=== PATIENT | male | born 1970 | race Caucasian/White ===

== ENCOUNTER 2018-09-27 22:38 | Inpatient (IN) | payer OTHER ==
[~2018-09-27] VITALS: Ht 175.3 cm; Wt 108.6 kg
[2018-09-27 23:21] LABS: COLLECTION METHOD CLEAN CATCH
[2018-09-27 23:21] LABS: BASO % 0.3 % (0.0-2.0); EOS % 0.1 % (0-4.0); GRAN # 10.8 (1.4-6.5); GRAN % 87.5 % (42.2-75.2); HEMATOCRIT 44.7 % (42.0-52.0); HEMOGLOBIN 15.8 g/dl (13.5-18.0); LYMPH % 7.8 % (20.0-51.0); MEAN CELL VOLUME 91 fl (80.0-100.0); MEAN CORPUSCULAR HEMOGLOBIN 32 pg (27.0-31.0); MEAN CORPUSCULAR HGB CONC 35 g/dl (33.0-37.0); MEAN PLATELET VOLUME 10.5 fl (7.4-10.4); MONO # 0.5 (0.1-0.6); MONO % 4.1 % (1.7-9.3); PLATELET COUNT 180 K/mm3 (130-400); RED BLOOD COUNT 4.91 M/mm3 (4.20-5.60); REDCELL DISTRIBUTION WIDTH-CV 13.2 % (11.5-14.5)
[2018-09-27 23:26] LABS: MUCOUS Present /lpf; PH 6 (5-8); SQUAMOUS EPITHELIAL 0-2 /hpf; URINE APPEARANCE Hazy; URINE BACTERIA None Seen /hpf; URINE BILIRUBIN Negative (NEGATIVE); URINE BLOOD Negative (NEGATIVE); URINE COLOR Yellow; URINE GLUCOSE Negative (NEGATIVE); URINE KETONE Negative (NEGATIVE); URINE LEUKOCYTE ESTERASE Negative (NEGATIVE); URINE NITRATE Negative (NEGATIVE); URINE PROTEIN(semi-quant) Negative (NEGATIVE); URINE RBC 0-2 /hpf; URINE UROBILINOGEN >=4.0 mg/dL (NEGATIVE)
[2018-09-27 23:35] LABS: ALBUMIN 4.1 gm/dL (3.5-5.0); BILIRUBIN,TOTAL 0.8 mg/dL (0.0-1.0); C-REACTIVE PROTEIN 0.7 mg/dL (0.0-0.9); CALCIUM 9.3 mg/dL (8.4-10.2); CREATININE, serum 1.03 (0.66-1.25); POTASSIUM 3.6 mmol/L (3.4-5.0); TOTAL PROTEIN 7.7 gm/dL (6.4-8.2)
--- NOTE | 2018-09-28 02:52 | NUR ---
Pt. arrived to the floor from ER. Pt. is A&XO3, assessment complete. IV to rt. ac patent, IV fluids started. Pt. reports pain to the abd. at a 1-2 at this time. Pt. denies need for pain meds. Call light within reach.
[2018-09-28 02:57] VITALS: BP 114/74; PULSE 102; TEMP 99.3
[2018-09-28 08:21] VITALS: BP 113/70; PULSE 102; TEMP 99.7
--- NOTE | 2018-09-28 08:52 | NUR ---
Patient resting in bed. rounded. Patient Npo per orders. Denies nausea. Denies passing flatus. Report a headache & dry eyes & some abdominal cramping. Patient denies the need for medication at this time. Abdomen soft, hernia present. Will kamila.
[2018-09-28 09:15] LABS: HEMATOCRIT 40.3 % (42.0-52.0); HEMOGLOBIN 14.2 g/dl (13.5-18.0); MEAN CELL VOLUME 91 fl (80.0-100.0); MEAN CORPUSCULAR HEMOGLOBIN 32 pg (27.0-31.0); MEAN CORPUSCULAR HGB CONC 35 g/dl (33.0-37.0); MEAN PLATELET VOLUME 10.7 fl (7.4-10.4); PLATELET COUNT 162 K/mm3 (130-400); RED BLOOD COUNT 4.45 M/mm3 (4.20-5.60)
[2018-09-28 09:22] LABS: ALBUMIN 3.4 gm/dL (3.5-5.0); BILIRUBIN,TOTAL 1.7 mg/dL (0.0-1.0); CALCIUM 8.9 mg/dL (8.4-10.2); CREATININE, serum 0.98 (0.66-1.25); TOTAL PROTEIN 6.5 gm/dL (6.4-8.2)
[2018-09-28 09:37] LABS: BAND 5 % (0-10); LYMPHOCYTE 3 % (20.0-51.0); NEUTROPHILS 90 % (42.0-75.2); PLATELET ESTIMATE NORMAL (NORMAL)
--- NOTE | 2018-09-28 09:38 | NUR ---
KAROLINE met with the patient to discuss discharge plan. The patient lives in [place] with his son, Luiz. He states that his daughter, Ines, is watching his son while he is here. He reports independence with ADls and does not have any DME. The patient receives primary care at [facility] and he receives his medications there. The patient does not have advanced directives and he was not interested in completing them. He states that his person to contact is his daughter, Ines. The patient plans to return home upon discharge. No additional needs at this time.
--- NOTE | 2018-09-28 10:46 | NUR ---
Patient up and ambulated the halls, Went to the bathroom. Denies bm or flatus, but did report belching. IS ordered & scds ble refused at this time
--- NOTE | 2018-09-28 12:09 | NUR ---
First visit from the sliver former. No needs right now.
[2018-09-28 12:37] VITALS: BP 119/74; PULSE 89; TEMP 98.9
[2018-09-28 15:24] VITALS: BP 117/74; PULSE 79; TEMP 98.9
--- NOTE | 2018-09-28 17:31 | NUR ---
Patient progressed to clear liquids, he had a glass of apple juice & then had episode of emesis. Patient going to just sip water slowly at this time. He has not yet had a BM. Minimal flatus, but does reprt belching. IV continue. He is voiding small amount of tr urine output. Will monitor.
--- NOTE | 2018-09-28 20:40 | NUR ---
Patient report received from Zoie Langston at shift change. Upon assessment at this time patient is resting in bed. Reported feeling like he needed to belch and vomitted instead. 200 ml emesis. Patient also reports having intermittant cramping pain to his abd, declines anything for pain at this time. IV to Right AC with fluids going at 100 ml/hr. No other needs reported/observed.
[2018-09-29] VITALS (7 sets, daily range): BP systolic 114–122; BP diastolic 72–79; PULSE 81–95; TEMP 98.1–98.6
--- NOTE | 2018-09-29 08:05 | NUR ---
Patient sitting up at edge of bed, He reports flatus. No Bm. Denies complaints of nausea at this time, but did have nausea over night. Denies the need for pain or nausea medication at this time. He is going to try & be mobile this am & sip clears, will monitor
--- NOTE | 2018-09-29 11:10 | NUR ---
rounded. Orders obtained, Eleazar in iced tea. Patient going to shower this afternoon.
--- NOTE | 2018-09-29 18:57 | NUR ---
Patient has continued to very sparingly sip on clears, he has denied nausea. He has required no pain medication today, but does report abdominal cramping at times. Ivf per orders. Continues to void concentrated urine. Scds ble. Report to Gracia RN
--- NOTE | 2018-09-29 21:00 | NUR ---
Patient very quiet, denies need for pain meds and isn't nauseated at this time. He reports pain comes in waves but doesn't stay. Abdomen with bulging abdominal hernia that is warm and slightly reddened in appearance. Bowel sounds hypoactive. Not taking much oral fluids, no emesis.
[2018-09-30] VITALS (10 sets, daily range): BP systolic 108–136; BP diastolic 70–83; PULSE 80–95; TEMP 98.2–98.8
--- NOTE | 2018-09-30 00:15 | NUR ---
Patient reports he has nausea, Zofran 4mg IV at this time.
[2018-09-30 06:49] LABS: HEMATOCRIT 40.1 % (42.0-52.0); HEMOGLOBIN 14.2 g/dl (13.5-18.0); MEAN CELL VOLUME 91 fl (80.0-100.0); MEAN CORPUSCULAR HEMOGLOBIN 32 pg (27.0-31.0); MEAN CORPUSCULAR HGB CONC 35 g/dl (33.0-37.0); MEAN PLATELET VOLUME 10.7 fl (7.4-10.4); PLATELET COUNT 176 K/mm3 (130-400); RED BLOOD COUNT 4.43 M/mm3 (4.20-5.60)
[2018-09-30 07:07] LABS: ALBUMIN 3.4 gm/dL (3.5-5.0); CALCIUM 8.4 mg/dL (8.4-10.2); CREATININE, serum 0.9 (0.66-1.25); PHOSPHOROUS 2.6 mg/dL (2.5-4.5); POTASSIUM 3.7 mmol/L (3.4-5.0)
[2018-09-30 07:19] LABS: BAND 3 % (0-10); EOSINOPHIL 2 % (0-4); LYMPHOCYTE 3 % (20.0-51.0); NEUTROPHILS 89 % (42.0-75.2)
--- NOTE | 2018-09-30 09:32 | NUR ---
Assessment completed, alert/oriented, vital signs stable, denies pain, still having some nausea and night nurse report roughly 500 cc emesis this morning, BS hypoactive, abdomen tender to palpation, heart RRR, lungs CTA, I have discussed plan of care with and updated on patients condition, had order to repeart Abd CT and place NG tuble possible OR today or tommorow if he does not start to improve
--- NOTE | 2018-09-30 16:50 | NUR ---
and radiology have reiveiwed Abd CT and recommending patient go to OR for Diagnostic Laprascopy and possible bowel resect, patient understands and agrees with plan of care, informed consent obtained and he is on his way to the OR at this time
--- NOTE | 2018-09-30 20:10 | NUR ---
RETURNED FROM SURGERY PER BED. IS AWAKE AND ALERT. HAS OXYGEN ON AT 3L/NC. HAS NGT TO RIGHT NARE, PLACED TO LIS WITH BEDOLLA DRAINAGE. HAS LARGE MIDLINE INCISION WITH SHADOWING ON DRESSING. HAS 2 LAP SITES COVERED WITH GAUZE, D/I. HAS EPIDURAL CATHETER INTACT TO BACK. HAS IVF TO RIGHT AC WITH IVF INFUSING WITHOUT REDNESS OR SWELLING. LINCOLN TO BSD WITH YELLOW URINE. LINCOLN CARE PROVIDED. DENIES PAIN AT THIS TIME.
[2018-10-01] VITALS (8 sets, daily range): BP systolic 105–117; BP diastolic 65–75; PULSE 71–94; TEMP 98–98.9
--- NOTE | 2018-10-01 00:10 | NUR ---
Patient reports still being comfortable with the Epidural. Shadowing to midline drsg has not increased.
--- NOTE | 2018-10-01 06:00 | NUR ---
Has 450cc of deleon drainage from NGT. Reports being comfortable with the Epidural infusing. IVF continue to right AC. Offers no concerns at this time.
[2018-10-01 07:58] LABS: BAND 1 % (0-10); LYMPHOCYTE 6 % (20.0-51.0); NEUTROPHILS 89 % (42.0-75.2); PLATELET ESTIMATE NORMAL (NORMAL)
--- NOTE | 2018-10-01 08:24 | NUR ---
Patient up to the chair this am. One assist & did well. Epidural @ 6 managing pain well. Okay with anesthesia for Lovenox injection this am. Patient Npo, denies nausea, Ng tube to LIS. Swann to DD. Abdomen rounded, bowels quiet, he denies flatus, but reports belching. Abdominal drg CBI. Will monitor
[2018-10-01 08:45] LABS: HEMATOCRIT 37.1 % (42.0-52.0); HEMOGLOBIN 13.4 g/dl (13.5-18.0); MEAN CELL VOLUME 89 fl (80.0-100.0); MEAN CORPUSCULAR HEMOGLOBIN 32 pg (27.0-31.0); MEAN CORPUSCULAR HGB CONC 36 g/dl (33.0-37.0); MEAN PLATELET VOLUME 10.3 fl (7.4-10.4); PLATELET COUNT 210 K/mm3 (130-400); RED BLOOD COUNT 4.17 M/mm3 (4.20-5.60); REDCELL DISTRIBUTION WIDTH-CV 12.9 % (11.5-14.5)
[2018-10-01 10:29] LABS: ALBUMIN 2.7 gm/dL (3.5-5.0); CREATININE, serum 0.88 (0.66-1.25); PHOSPHOROUS 4.2 mg/dL (2.5-4.5); POTASSIUM 3.9 mmol/L (3.4-5.0)
--- NOTE | 2018-10-01 11:46 | NUR ---
Initial visit; Patient thanked [employer] Supervisor for looking in on him and offering God's blessings. Patient has good family support.
--- NOTE | 2018-10-01 18:21 | NUR ---
Patient continues to do well. He has ambulated the halls today. He is siting up in the chair. Epidural manages pain. He remains NPO, NG to LIS. Ranjiteis nausea. Abdominal incisions drg changed per orders-lap site bandaids intact & midline gauze & tape to fouzia. Abdominal binder in place for patient comfort. Ivf to Rac per orders. Scds. Is used. Will report off to night nurse
--- NOTE | 2018-10-01 20:30 | NUR ---
Patient report received from ANA Whyte at shift change. Upon assessment at this time patient is sitting up in the chair. Denies pain or N/V. NG to LIS. Swann to dependant drainage, concentrated urine noted. IV fluids running at 100 ml/hr. Epidural in place, infusing at 6 ml/hr. Patient reports not having to push the button for additional medication. Patient currently has an abd binder in place. Vitals stable. Aide assisted patient for a walk in the capps, tolerated well, back to bed. No other needs reported/observed.
[2018-10-02 04:15] VITALS: BP 107/73; PULSE 88; TEMP 98.4
--- NOTE | 2018-10-02 05:27 | NUR ---
Patient report given to ANA Mayen. Patient resting comfortably at this time.
--- NOTE | 2018-10-02 08:00 | NUR ---
PATIENT IS RESTING IN BED THIS MORNING. PATIENT IS A&OX4. IRREGULAR HEART RHYTHM WITH REGULAR RATE NOTED, OTHERWISE VSS. ABDOMEN IS DISTENDED, BUT SOFT TO PALPATION. NG TUBE TO LIS WITH 200 MLS OF GREEN EMESIS PRESENT IN NG WALL CANISTER. MIDLINE ABDOMINAL INCISION DRESSED WITH GAUZE AND HYPAFIX AND IS CD&I. ABDOMINAL LAP SITES X2 DRESSED WITH BANDAIDS AND ARE CD&I. BACK EPIDURAL SITE DRESSED WITH TEGADERM AND ORANGE TAPE, SCANT AMOUNT OF OLD BLOODY DRAINAGE PRESENT, OTHERWISE CD&I. LINCOLN CATHETER TO DEPENDENT DRAINAGE WITH SMALL AMOUNTS OF STEPHANIA URINE PRESENT IN LINCOLN BAG. POSITIVE PEDAL PULSES EQUAL BILATERALLY. IV FLUIDS INFUSING TO RIGHT AC IV VIA PUMP. PATIENT DANGELING AT THE SIDE OF BED. CALL LIGHT WITHIN REACH. PATIENT DENIES ANY OTHER NEEDS AT THIS TIME.
[2018-10-02 08:01] LABS: BASO % 0.1 % (0.0-2.0); EOS # 0.2 (0.0-0.7); EOS % 2.2 % (0-4.0); GRAN # 6.5 (1.4-6.5); GRAN % 73.7 % (42.2-75.2); HEMOGLOBIN 12.3 g/dl (13.5-18.0); LYMPH # 1.1 (1.2-3.4); MEAN CELL VOLUME 92 fl (80.0-100.0); MEAN CORPUSCULAR HEMOGLOBIN 32 pg (27.0-31.0); MEAN CORPUSCULAR HGB CONC 34 g/dl (33.0-37.0); MEAN PLATELET VOLUME 9.8 fl (7.4-10.4); MONO # 0.9 (0.1-0.6); MONO % 10.3 % (1.7-9.3); PLATELET COUNT 183 K/mm3 (130-400); RED BLOOD COUNT 3.89 M/mm3 (4.20-5.60)
[2018-10-02 08:08] LABS: HEMATOCRIT 35.8 % (42.0-52.0)
[2018-10-02 08:24] LABS: CALCIUM 7.9 mg/dL (8.4-10.2); CREATININE, serum 1.01 (0.66-1.25); POTASSIUM 3.4 mmol/L (3.4-5.0)
[2018-10-02 08:51] VITALS: BP 107/73; PULSE 90; TEMP 99.3
--- NOTE | 2018-10-02 09:10 | NUR ---
PATIENT'S NG TUBE CLAMPED FOR WALK.
--- NOTE | 2018-10-02 09:55 | NUR ---
PATIENT SITTING UP IN THE CHAIR AFTER AMBULATING IN THE HALLS. PATIENT NG TUBE RE-CONNECTED TO LIS.
[2018-10-02 11:54] VITALS: BP 111/70; PULSE 76; TEMP 98.1
--- NOTE | 2018-10-02 12:40 | NUR ---
PATIENT'S MIDLINE INCISION RODRÍGUEZ ARE INTACT WITH EDGES WELL APPROXIMATED. INCISION RE-DRESSED WITH GAUZE & HYPAFIX. PATIENT TOLERATED WELL. NG TUBE CLAMPED FOR WALK. ADDITIONAL 150 MLS OF GREEN EMESIS PRESENT IN NG CANISTER.
--- NOTE | 2018-10-02 12:56 | NUR ---
PATIENT'S NG TUBE RE-CONNECTED TO LIS AFTER WALK.
[2018-10-02 16:29] VITALS: BP 114/70; PULSE 75; TEMP 97.8
--- NOTE | 2018-10-02 18:58 | NUR ---
REPORT GIVEN TO ANA GLASS.
[2018-10-02 20:11] VITALS: BP 116/74; PULSE 82; TEMP 98.4
[2018-10-02 23:57] VITALS: BP 115/68; PULSE 88; TEMP 99.1
[2018-10-03 05:35] VITALS: BP 113/70; PULSE 80; TEMP 98.2
--- NOTE | 2018-10-03 05:55 | NUR ---
VERY LITTLE OUT OF NG TUBE DURING THE NIGHT. PT DENIES PASSING ANY GAS. NO c/o PAIN.
[2018-10-03 07:55] VITALS: BP 122/78; PULSE 76; TEMP 98.1
--- NOTE | 2018-10-03 08:00 | NUR ---
PATIENT IS SITTING UP IN THE CHAIR THIS MORNING. PATIENT IS A&OX4. VSS. UPPER LUNG LOBES CLEAR UPON AUSCULATAION. LUNG BASES DIMINISHED BILATERALLY. PATIENT DENIES SOB OR A PRODUCTIVE COUGH. ABDOMEN IS DISTENDED, BUT SOFT TO PALPATION. NG TUBE SECURED TO RIGHT NARE AND CONNECTED TO LIS WITH GREEN EMESIS PRESENT IN NG WALL CANISTER. MIDLINE ABDOMINAL INCISION DRESSED WITH GAUZE AND HYPAFIX AND IS CD&I. ABDOMINAL LAP SITES X2 DRESSED WITH BANDAIDS AND ARE CD&I. UPPER ABDOMINAL QUADRANTS ACTIVE. LOWER ABDOMINAL QUADRANTS HYPOACTIVE. BACK EPIDURAL SITE DRESSED WITH TEGADERM AND ORANGE TAPE, SCANT AMOUNT OF OLD BLOODY DRAINAGE PRESENT, OTHERWISE CD&I. LINCOLN CATHETER TO DEPENDENT DRAINAGE WITH STEPHANIA URINE AND MUCOUS PRESENT IN LINCOLN BAG. POSITIVE PEDAL PULSES EQUAL BILATERALLY. IV FLUIDS INFUSING TO RIGHT AC IV VIA PUMP. CALL LIGHT WITHIN REACH. PATIENT DENIES ANY OTHER NEEDS AT THIS TIME.
--- NOTE | 2018-10-03 08:05 | NUR ---
PATIENT'S NG TUBE CLAMPED FOR WALK.
--- NOTE | 2018-10-03 09:15 | NUR ---
ANESTHESIA CALLED REGARDING PATIENT'S LOVENOX INJECTION. OKAY TO GIVE TODAY'S DOSE.
--- NOTE | 2018-10-03 09:15 | NUR ---
PATIENT'S NG TUBE RE-CONNECTED TO LIS.
--- NOTE | 2018-10-03 10:45 | NUR ---
NG TUBE CANISTER EXCHANGED.
[2018-10-03 11:39] VITALS: BP 117/74; PULSE 79; TEMP 99.1
--- NOTE | 2018-10-03 11:55 | NUR ---
PATIENT'S NG TUBE CLAMPED PER DR. PETER'S ORDERS. GWENDOLYN AMBULATING IN [place] WITH SURGICLA STAFF.
--- NOTE | 2018-10-03 12:25 | NUR ---
PATIENT STATED THAT HE DOES NOT FEEL ANY DRAINAGE PRESENT UNDERNEATH HIS ABDOMINAL DRESSING. PATIENT STATED THAT HE WOULD PREFER NOT TO DO A DRESSING CHANGE AT THIS TIME.
[2018-10-03 16:14] VITALS: BP 117/74; PULSE 79; TEMP 98.9
--- NOTE | 2018-10-03 16:20 | NUR ---
PATIENT AMBULATED IN HALLS WITH SURGICAL STAFF.
--- NOTE | 2018-10-03 17:25 | NUR ---
PATIENT DENIES INCREASED PAIN, NAUSEA, OR BLOATING WHILE ON CLEAR LIQUID DIET. NG TUBE DISCONTINUED PER DR. PETER'S ORDERS. PATIENT TOLERATED WELL. PATIENT DENIES ANY OTHER NEEDS AT THIS TIME.
--- NOTE | 2018-10-03 19:04 | NUR ---
REPORT GIVEN TO ANA GLASS.
[2018-10-03 21:02] VITALS: BP 126/75; PULSE 82; TEMP 98.8
[2018-10-04] VITALS (7 sets, daily range): BP systolic 111–128; BP diastolic 73–82; PULSE 68–84; TEMP 97.9–98.7
--- NOTE | 2018-10-04 06:01 | NUR ---
PT'S BLOOD PRESSURE ELEVATED. PT ADMIN. DILAUDID. ALSO ADMIN. HYDRALAZINE FOR ELEVATED BLOOD PRESSURE. PT HAD SEVERAL EMESIS LAST NIGHT. PER REPORT FROM DAY SHIFT, PT WILL PROBABLY GET A SURGICAL CONSULT R/T MULTIPLE EMESIS.
[2018-10-04 07:15] LABS: MEAN CELL VOLUME 90 fl (80.0-100.0); MEAN CORPUSCULAR HEMOGLOBIN 32 pg (27.0-31.0); MEAN CORPUSCULAR HGB CONC 36 g/dl (33.0-37.0); MEAN PLATELET VOLUME 9.9 fl (7.4-10.4); PLATELET COUNT 205 K/mm3 (130-400); RED BLOOD COUNT 3.76 M/mm3 (4.20-5.60); REDCELL DISTRIBUTION WIDTH-CV 12.3 % (11.5-14.5)
[2018-10-04 07:25] LABS: CALCIUM 7.8 mg/dL (8.4-10.2); CREATININE, serum 0.74 (0.66-1.25); POTASSIUM 3.4 mmol/L (3.4-5.0)
[2018-10-04 07:27] LABS: HEMATOCRIT 33.8 % (42.0-52.0)
--- NOTE | 2018-10-04 10:22 | NUR ---
Follow-up visit; Patient thanked Cafe Manager for looking in on him and offering God's blessings and continued healing.
--- NOTE | 2018-10-04 13:00 | NUR ---
Patient is getting his diet advanced. Percocet given once this am after epidural discontinued. Swann is being discontinues at this time by Singh Andre RN. Patient continues to deny pain and nausea. IV has been stopped. Explained can have full liquids for lunch and than advnced to low fiber diet for supper. No other changes at this time. Call light within reach.
--- NOTE | 2018-10-04 18:30 | NUR ---
Patient has been getting around on his own now that he is not attached. He has voided twice since his catheter was removed. No bowel movements yet but passing flatu without problems. No other changes at this time. Call light with in reach.
--- NOTE | 2018-10-04 20:00 | NUR ---
Patient had just been in hallway walking, steady gait noted. Back to bed, has IV antibiotic infusing without problem to right AC. Is alert and oriented x4. Has bandaids x2 to abdomen and midline dressing intact. Reports having stool and voiding without problem.
[2018-10-05 03:54] VITALS: BP 113/79; PULSE 79; TEMP 98.1
--- NOTE | 2018-10-05 06:19 | NUR ---
NEW IV SITE TO LEFT WRIST PLACED #20 ON FIRST ATTEMPT. DC'D IV SITE FROM RIGHT AC, ANGIOCATH INTACT
--- NOTE | 2018-10-05 07:47 | NUR ---
Patient sitting up in bed eating breakfast.Denies nausea. He is alert & oriented. Denies pain. Patient report passing flatus & stool. He is going to take a shower this am. Drg removed from abdominal midline & lap sites, fouzia intact. Bowels audible. Will monitor.
[2018-10-05 07:49] VITALS: BP 115/77; PULSE 83; TEMP 97.6
[2018-10-05] MEDS ORDERED: PERCOCET 325 MG1 TA2 PO (08:53)
[2018-10-05] MEDS ORDERED: LEVAQUIN 750MG750 M1 PO (08:54)
[2018-10-05] MEDS ORDERED: MOTRIN 600600 MG/TAB PO (08:55)
[2018-10-05] MEDS ORDERED: FLAGYL500 MG PO (08:55)
--- NOTE | 2018-10-05 11:18 | NUR ---
Patient sitting up in chair. Waiting on a ride. All discharge paperwork completed. rounded and order obtained
[2018-10-05 12:08] VITALS: BP 106/76; PULSE 85; TEMP 98
--- NOTE | 2018-10-05 15:00 | NUR ---
All discharge paperwork reviewed. We discussed low fiber diet, he did well with lunch, no nausea. He denies pain, We reviewed scripts-levaquin,flagyl,percocet,motrin. Medication safety discussed with last dose given. Incisional care & activity restriction reviewed. Follow up appt reviewed. Int dc. Patient denies quiestions or cocnerns, his children to given him a ride home, he will be walked out with all belongings.
[2018-10-05 15:58] VITALS: BP 109/70; PULSE 84; TEMP 98.7
--- NOTE | 2018-10-05 17:07 | NUR ---
Patient ambulated out with All belongings. Denies questions or concerns. His daughter taking him home
== END 2018-10-05 17:09 | disposition home or self-care (01) | DRG 330 ==
LOC: COL.ER 22:38 → SURG 09-28 02:02
PROVIDERS: Nurse Practitioner; Surgery; ADMIT Surgery
PROC: 0DNB0ZZ Release Ileum, Open Approach (ICD-10-PCS; principal; 2018-09-30 17:00)
PROC: 0DTA0ZZ Resection of Jejunum, Open Approach (ICD-10-PCS; principal; 2018-09-30 17:00)
PROC: 0DNA0ZZ Release Jejunum, Open Approach (ICD-10-PCS; principal; 2018-09-30 17:00)
PROC: 0DJD4ZZ Inspection of Lower Intestinal Tract, Percutaneous Endoscopic Approach (ICD-10-PCS; principal; 2018-09-30 17:00)
DX: K57.00 Diverticulitis of small intestine with perforation and abscess without bleeding (principal); K56.609 Unspecified intestinal obstruction, unspecified as to partial versus complete obstruction; E87.1 Hypo-osmolality and hyponatremia; K91.30 Postprocedural intestinal obstruction, unspecified as to partial versus complete; D72.819 Decreased white blood cell count, unspecified; Z53.31 Laparoscopic surgical procedure converted to open procedure; K43.9 Ventral hernia without obstruction or gangrene; Y83.8 Other surgical procedures as the cause of abnormal reaction of the patient, or of later complication, without mention of misadventure at the time of the procedure; Y73.1 Therapeutic (nonsurgical) and rehabilitative gastroenterology and urology devices associated with adverse incidents; Y92.239 Unspecified place in hospital as the place of occurrence of the external cause; D64.9 Anemia, unspecified; E83.51 Hypocalcemia
CPT/HCPCS: A4314; A9284; J0330; J0690; J1100; J1170; J1650; J1956; J2405; J2704; J3010; J7030; J7120; Q9967